=== PATIENT | male | born 1975 | race Caucasian/White ===

== ENCOUNTER 2017-12-19 16:05 | Observation (INO) ==
[2017-12-19] MEDS ORDERED: Ondansetron 4 MG/2 ML VIAL IVP ONE (16:18)
[2017-12-19] MEDS ORDERED: 0.9 % Sodium Chloride 1,000 ML IVC ONE ×2 (16:18→17:03)
--- NOTE | 2017-12-19 16:18 | Emergency Department Note ---
Disposition Clinical Impression: LIZZETH (acute kidney injury), Elevated troponin, Acute mesenteric adenitis, Abdominal pain, Diarrhea, Dehydration Disposition: Admitted As Inpatient Condition: Undetermined General Adult HPI - General Chief complaint: ED Extremity Problem,Nontraumatic Stated complaint: Bi-lateral leg numbness/pain Time Seen by Provider: 12/19/17 16:13 - History of Present Illness Pain Scale: 10 - Related Data Allergies Allergy/AdvReac Type Severity Reaction Status Date / Time No Known Allergies Allergy Verified 12/19/17 16:09 Course Vital Signs Temperature 97.5 F L 12/19/17 16:07 Pulse Rate 97 12/19/17 16:07 Respiratory Rate 16 12/19/17 16:07 Blood Pressure 90/55 12/19/17 16:07 O2 Sat by Pulse Oximetry 98 12/19/17 16:07 Temperature 98.4 F 12/19/17 20:59 Pulse Rate 77 12/19/17 20:59 Respiratory Rate 18 12/19/17 20:59 Blood Pressure 122/85 12/19/17 20:59 O2 Sat by Pulse Oximetry 96 12/19/17 20:59 Oxygen Delivery Oxygen Delivery Room Air Medical Decision Making - Lab Data Result diagrams: 12/19/17 16:29 12/19/17 16:29 Lab Results 12/19/17 12/19/17 12/19/17 Range/Units 16:29 16:29 16:29 WBC 12.0 H (4.3-11.1) K/mcL RBC 4.67 (4.19-5.50) M/mcL Hgb 14.4 (12.9-16.9) g/dL Hct 41.7 (37.5-50.1) % MCV 89.3 (83.0-100.0) fL MCH 30.8 (28.0-33.3) pg MCHC 34.5 (31.6-35.5) g/dL RDW 14.1 (11.5-14.5) % Plt Count 270 (140-400) K/mcL MPV 9.4 (9.4-12.4) fL Immature Gran % 0.5 (0-4) % Seg Neutrophils % 82.8 % Lymphocytes % 9.5 % Monocytes % 6.3 % Eosinophils % 0.6 % Basophils % 0.3 % Neutrophils # 10.0 H (1.6-8.9) K/mcL Lymphocytes # 1.1 (0.6-4.6) K/mcL Monocytes # 0.8 (0.0-1.3) K/mcL Eosinophils # 0.1 (0.0-0.6) K/mcL Basophils # 0.0 (0.0-0.2) K/mcL Sodium 137 (136-145) mEq/L Potassium 3.4 L (3.5-5.1) mEq/L Chloride 104 (98-107) mEq/L Carbon Dioxide 23 (23-29) mEq/L BUN 12 (6-20) mg/dL Creatinine 1.79 H (0.70-1.30) mg/dL Est GFR ( Amer) 50 L (> 60) Est GFR (Non-Af Amer) 42 L (> 60) BUN/Creatinine Ratio 7 (6-26) Glucose 134 H (70-105) mg/dL Calculated Osmolality 286 (280-300) Lactic Acid 3.0 H (0.5-2.2) mmol/L Calcium 10.0 (8.6-10.3) mg/dL Total Bilirubin 0.4 (0.3-1.0) mg/dL AST 15 (13-39) Units/L ALT 9 (7-52) Units/L Alkaline Phosphatase 107 H (34-104) Units/L Creatine Kinase 253 H (30-223) Units/L Troponin I 0.05 H* (< 0.04) ng/mL Serum Total Protein 8.1 (6.4-8.9) g/dL Albumin 4.8 (3.5-5.7) g/dL Globulin 3.3 (2.4-3.5) g/dL Albumin/Globulin Ratio 1.5 (1.1-2.2) Lipase 17 (11-82) Units/L 12/19/17 Range/Units 20:12 WBC (4.3-11.1) K/mcL RBC (4.19-5.50) M/mcL Hgb (12.9-16.9) g/dL Hct (37.5-50.1) % MCV (83.0-100.0) fL MCH (28.0-33.3) pg MCHC (31.6-35.5) g/dL RDW (11.5-14.5) % Plt Count (140-400) K/mcL MPV (9.4-12.4) fL Immature Gran % (0-4) % Seg Neutrophils % % Lymphocytes % % Monocytes % % Eosinophils % % Basophils % % Neutrophils # (1.6-8.9) K/mcL Lymphocytes # (0.6-4.6) K/mcL Monocytes # (0.0-1.3) K/mcL Eosinophils # (0.0-0.6) K/mcL Basophils # (0.0-0.2) K/mcL Sodium (136-145) mEq/L Potassium (3.5-5.1) mEq/L Chloride (98-107) mEq/L Carbon Dioxide (23-29) mEq/L BUN (6-20) mg/dL Creatinine (0.70-1.30) mg/dL Est GFR ( Amer) (> 60) Est GFR (Non-Af Amer) (> 60) BUN/Creatinine Ratio (6-26) Glucose (70-105) mg/dL Calculated Osmolality (280-300) Lactic Acid 1.0 (0.5-2.2) mmol/L Calcium (8.6-10.3) mg/dL Total Bilirubin (0.3-1.0) mg/dL AST (13-39) Units/L ALT (7-52) Units/L Alkaline Phosphatase (34-104) Units/L Creatine Kinase (30-223) Units/L Troponin I (< 0.04) ng/mL Serum Total Protein (6.4-8.9) g/dL Albumin (3.5-5.7) g/dL Globulin (2.4-3.5) g/dL Albumin/Globulin Ratio (1.1-2.2) Lipase (11-82) Units/L Attestation Statement - Attestation Attestation: I examined this patient and my medical decision-making was reviewed with the Resident Physician. I agree with the documented findings, disposition and treatment plan as described except to the extent set forth below. [id number] time provided Patient with a history of cerebral palsy presents with change in baseline mentation. I evaluated this patient in conjunction with the resident physician Dr. Espinoza. He had complained of numbness and tingling of his lower extremities bilaterally as well as diarrhea and abdominal pain.
--- NOTE | 2017-12-19 16:22 | Emergency Department Note ---
Disposition Clinical Impression: LIZZETH (acute kidney injury), Elevated troponin, Acute mesenteric adenitis, Dehydration Abdominal pain Qualifiers: Abdominal location: generalized Qualified Code(s): R10.84 - Generalized abdominal pain Diarrhea Qualifiers: Diarrhea type: unspecified type Qualified Code(s): R19.7 - Diarrhea, unspecified Disposition: Admitted As Inpatient Condition: Undetermined Referrals: NONE,PCP [Primary Care Provider] - Forms: ED Satisfaction Letter Time of Disposition: 18:43 General Adult HPI - General Chief complaint: ED Extremity Problem,Nontraumatic Stated complaint: Bi-lateral leg numbness/pain Time Seen by Provider: 12/19/17 16:13 Source: patient Mode of arrival: ambulatory Limitations: no limitations Nursing Notes Reviewed: Yes Vital Signs Reviewed: Yes - History of Present Illness HPI Narrative: 42-year-old male with history of cerebral palsy arrives to the emergency department after the patient was not acting right. The patient does not use air -conditioning in his house and states he has been sitting on his front porch old they have been out of the heat. Family member was with the patient and the patient noted to not be acting right. The patient was noted to be staring off despite following some commands. Patient was also noted to be diaphoretic and is complaining of bilateral lower extremity numb and weakness. The patient states that he has had a couple episodes of diarrhea as well. He is complaining of some lower abdominal pain. Denies any dysuria. The patient has some associated nausea without vomiting. He is very sweaty and diaphoretic on examination. He denies any other specific complaints at this time. The patient is alert and oriented and neurologically intact for baseline for the patient. Family members in the room state the patient is acting baseline at this time. He is noted to be mildly hypotensive with a systolic in the 90s and mildly tachycardic with a heart rate 103 on evaluation in the room. He denies any other complaints including difficulty breathing, chest pain. Pain Scale: 10 - Related Data Allergies Allergy/AdvReac Type Severity Reaction Status Date / Time No Known Allergies Allergy Verified 12/19/17 16:09 All systems ED: reviewed and negative except as stated. Constitutional: Reports: weakness. Denies: fever, chills ENT ED: Denies: dysphagia Cardiovascular: Denies: chest pain Respiratory: Denies: dyspnea Gastrointestinal: Reports: abdominal pain, nausea, diarrhea. Denies: vomiting, constipation, hematemesis, melena, hematochezia Genitourinary: Denies: urgency, dysuria, frequency, hematuria, discharge, testicular pain, testicular mass Musculoskeletal: Reports: myalgia. Denies: back pain, neck pain, arthralgia Integumentary: Denies: rash, lesions Neurological: Reports: weakness, numbness. Denies: headache, paresthesias, confusion, abnormal gait, vertigo Past Medical History - Past Medical History Attestation: Yes The following information was validated with the patient. Source: patient Medical history: Reports: seizures, other (cerebral palsy) Surgical history: Reports: non-contributory - Social History Smoking Status: Never smoker Alcohol use: Reports: none Drug use: Reports: none Physical Exam - General Limitations: no limitations General appearance: alert, in no apparent distress - Head Head exam: atraumatic, normocephalic, normal inspection - Eye Eye exam: Present: normal appearance, PERRL, EOMI - ENT ENT exam: normal exam, normal oropharynx, mucous membranes moist - Neck Neck exam: Present: normal inspection, full ROM, trachea midline - Chest Chest inspection: Present: normal inspection, symmetric chest wall rise - Respiratory Respiratory exam: Present: normal lung sounds bilaterally - Cardiovascular Cardiovascular exam: Present: normal rhythm, tachycardia, normal heart sounds - Abdominal Exam Abdominal exam: Present: soft, tenderness (Lower abdomen). Absent: distention, guarding, rebound, rigidity, Hurtado's sign, Rovsing's sign, hernia - Extremities Exam Extremities exam: Present: normal inspection, full ROM. Absent: tenderness, pedal edema - Neurological Exam Neurological exam: Present: alert, oriented X3, other (Patient has baseline spastic cerebral palsy.) - Expanded Neurological Exam Patient oriented to: Present: person, place, time Speech: Present: fluid speech Cranial nerves: EOM function (II, III, IV, ): Normal, facial sensation (V): Normal, facial palsy (VII): Normal Cerebellar function: wide-based gait (Baseline secondary to cerebral palsy) Motor strength - LUE: 4/5 Motor strength - RUE: 4/5 Motor strength - LLE: 4/5 Motor strength - RLE: 4/5 Sensory exam upper extremity: light touch: Normal Sensory exam lower extremity: light touch: Normal Coma Scale Eye Opening: Spontaneous Coma Scale Motor Response: Obeys Commands Coma Scale Verbal Response: Oriented Coma Scale Total: 15 - Skin Skin exam: Present: warm, dry, intact, normal color Course Vital Signs Temperature 97.5 F L 12/19/17 16:07 Pulse Rate 97 12/19/17 16:07 Respiratory Rate 16 12/19/17 16:07 Blood Pressure 90/55 12/19/17 16:07 O2 Sat by Pulse Oximetry 98 12/19/17 16:07 Temperature 97.5 F L 12/19/17 16:29 Pulse Rate 89 12/19/17 17:13 Respiratory Rate 18 12/19/17 17:13 Blood Pressure 92/59 12/19/17 17:13 O2 Sat by Pulse Oximetry 96 12/19/17 17:13 Oxygen Delivery Oxygen Delivery Room Air Medical Decision Making - MDM Narrative Medical decision making narrative: Patient's workup in the emergency department demonstrates an elevated troponin. No previous record of troponins in the past so we are unsure. A 0.05 the patient will likely need to trend the troponin as he is chest pain-free and without any shortness of breath without any EKG changes. The patient is noted to have an acute kidney injury because the patient has no previous record of kidney function. The patient was given 2 L of IV fluids here in the emergency department. CT of the patient's head demonstrates no acute process. CT of the patient's abdomen pelvis does reveal some free fluid within the pelvis and findings consistent with mesenteric right his. The appendix was not completely visually seen but there are no signs of secondary findings to the appendicitis. The patient was given 1 dose of Zosyn here in the emergency department. He states he is unable to urinate at this time. We will admit the patient to the hospital with IV hydration, trending of this troponins, and follow-up with the patient's abdominal findings. The patient's urinalysis will be followed up with upon admission. The patient and family were made aware that the patient will be admitted to the hospital this time. Accepted by Dr. Irwin. - Lab Data Lab results reviewed: Yes I reviewed the patient's lab results. Result diagrams: 12/19/17 16:29 12/19/17 16:29 Lab Results 12/19/17 12/19/17 12/19/17 Range/Units 16:29 16:29 16:29 WBC 12.0 H (4.3-11.1) K/mcL RBC 4.67 (4.19-5.50) M/mcL Hgb 14.4 (12.9-16.9) g/dL Hct 41.7 (37.5-50.1) % MCV 89.3 (83.0-100.0) fL MCH 30.8 (28.0-33.3) pg MCHC 34.5 (31.6-35.5) g/dL RDW 14.1 (11.5-14.5) % Plt Count 270 (140-400) K/mcL MPV 9.4 (9.4-12.4) fL Immature Gran % 0.5 (0-4) % Seg Neutrophils % 82.8 % Lymphocytes % 9.5 % Monocytes % 6.3 % Eosinophils % 0.6 % Basophils % 0.3 % Neutrophils # 10.0 H (1.6-8.9) K/mcL Lymphocytes # 1.1 (0.6-4.6) K/mcL Monocytes # 0.8 (0.0-1.3) K/mcL Eosinophils # 0.1 (0.0-0.6) K/mcL Basophils # 0.0 (0.0-0.2) K/mcL Sodium 137 (136-145) mEq/L Potassium 3.4 L (3.5-5.1) mEq/L Chloride 104 (98-107) mEq/L Carbon Dioxide 23 (23-29) mEq/L BUN 12 (6-20) mg/dL Creatinine 1.79 H (0.70-1.30) mg/dL Est GFR ( Amer) 50 L (> 60) Est GFR (Non-Af Amer) 42 L (> 60) BUN/Creatinine Ratio 7 (6-26) Glucose 134 H (70-105) mg/dL Calculated Osmolality 286 (280-300) Lactic Acid 3.0 H (0.5-2.2) mmol/L Calcium 10.0 (8.6-10.3) mg/dL Total Bilirubin 0.4 (0.3-1.0) mg/dL AST 15 (13-39) Units/L ALT 9 (7-52) Units/L Alkaline Phosphatase 107 H (34-104) Units/L Creatine Kinase 253 H (30-223) Units/L Troponin I 0.05 H* (< 0.04) ng/mL Serum Total Protein 8.1 (6.4-8.9) g/dL Albumin 4.8 (3.5-5.7) g/dL Globulin 3.3 (2.4-3.5) g/dL Albumin/Globulin Ratio 1.5 (1.1-2.2) Lipase 17 (11-82) Units/L - Radiology Data Radiology results reviewed: Yes I reviewed the patient's radiology results. Abdomen/Pelvis CT 12/19/17 16:18 IMPRESSION: There is a small amount of free pelvic fluid, which is unusual for this patient's age, and suggests intraperitoneal inflammation or infection. Having said that, a definite etiology that fluid is not detected. Other than some mild mesenteric fat stranding, no focal mural thickening of the large or small bowel is detected. Those portions of the appendix which are visualized are normal (although the appendiceal tip is admittedly not well visualized). At this point, close clinical, and if necessary imaging follow-up is recommended. Nonobstructing punctate nephrolithiasis bilaterally. D/ / Ji Pinto MD / Ji Pinto MD Interpreting Provider: Ji Pinto MD Head CT 12/19/17 16:18 IMPRESSION: No acute intracranial abnormality. Chronic sinus disease with near complete opacification of the right maxillary sinus. D/ / Johnnie Ward MD / Johnnie Ward MD Interpreting Provider: Johnnie Ward MD - EKG Data EKG #1 EKG attestation: Yes I reviewed and interpreted this EKG. EKG results narrative: Heart rate 101 beats for minute. Sinus tachycardia. No ST elevation or ST depression noted. No acute changes noted. No previous EKG on record.
[2017-12-19 16:46] LABS: Basophils % 0.3 %; Eosinophils # 0.1 K/mcL (0.0-0.6); Eosinophils % 0.6 %; Hematocrit 41.7 % (37.5-50.1); Hemoglobin 14.4 g/dL (12.9-16.9); Immature Granulocytes % 0.5 % (0-4); Lymphocytes # 1.1 K/mcL (0.6-4.6); Lymphocytes % 9.5 %; Mean Corpuscular HGB Conc 34.5 g/dL (31.6-35.5); Mean Corpuscular Hemoglobin 30.8 pg (28.0-33.3); Mean Corpuscular Volume 89.3 fL (83.0-100.0); Mean Platelet Volume 9.4 fL (9.4-12.4); Monocytes # 0.8 K/mcL (0.0-1.3); Monocytes % 6.3 %; Platelet Count 270 K/mcL (140-400); Red Blood Count 4.67 M/mcL (4.19-5.50); Red Cell Distribution Width 14.1 % (11.5-14.5); Segmented Neutrophils % 82.8 %
[2017-12-19 17:07] LABS: Albumin 4.8 g/dL (3.5-5.7); Albumin/Globulin Ratio 1.5 (1.1-2.2); Bilirubin,Total 0.4 mg/dL (0.3-1.0); Globulin 3.3 g/dL (2.4-3.5); Potassium 3.4 mEq/L (3.5-5.1); Total Protein 8.1 g/dL (6.4-8.9)
[2017-12-19 17:10] LABS: Troponin I 0.05 ng/mL (< 0.04)
[2017-12-19] MEDS ORDERED: Piperacillin/Tazobactam 3.375 GM in 0.9 % Sodium Chloride Mini Bag 100 ML IVPB ONE (18:32)
[2017-12-19] MEDS ORDERED: Naloxone 0.4 MG/ML INJ IVP PRN (21:12)
[2017-12-19] MEDS ORDERED: 0.9 % Sodium Chloride w KCl 20 MEQ/1,000 ML MLS IVC SCH (21:15)
--- NOTE | 2017-12-19 23:20 | Internal Med History&Physical ---
Date of Encounter: 12/19/17 Time of Encounter: 21:00 Internal Medicine - H&P: HPI Chief complaint: Altered mental status Admitted From: Home Plans for Post Hospital Care: Home History of present illness: Mr. Mccall is a 42 year old male. This patient has had underlying cerebral palsy. He needs by himself. He has not been feeling well for about 1 day. It is associated with her decreased intake of fluids and foods. He had a large watery bowel movement today morning. When he saw a family member visited him today morning he noticed the patient to have a few minutes lasting episode of staring down and not responding to questions. The patient got significantly better after receiving 2 bags of IV fluids in the emergency department. This patient was treated for seizures in the pastwas on Tegretol. He stopped taking treatments about [address] of the brain shows normal findings. CT of her abdomen/pelvis that shows mesenteric stranding suggestive diagnosis of acute mesenteritis. Creatinine is increased at 1.79. We do not have his baseline. Review of systems: All 14 organ systems were reviewed by me with the patient. Positive and pertinent negative findings are listed above. The rest of organ systems is negative. Physical Exam: Skin: Free of rash and discoloration. Musculoskeletal: He does have a grimacing of his face. He has contractions in the elbows. His hands are showing contractions, too. Eyes: Sclera is white. There is no discharge from eyes. ENMT: Oral/pharyngeal mucosa is normal in appearance. There is no discharge from nose or ears. Respiratory: Normal breath sounds with no crackles and wheezes bilaterally. CV: Heart is regular with no gallop or murmur. GI: Abdomen is flat and soft with no palpable mass or visceromegaly. : There is no tenderness in patient's flanks bilaterally. Neuro exam: He has good strength in upper and lower extremities. He has normal eye movements. Psychiatric: He has normal affect. His thought process is appropriate to the situation. A/P: Altered mental status secondary to dehydration/acute kidney injury. He has already 2 L of IV fluids. We will give him 1 L of extra. It will be with potassium chloride as he is mildly hypokalemic. He may have acute mesenteritis. This is why he has experienced a decreased intake of fluids/foods and one bout of watery diarrhea. We will keep him on IV Cipro. We will continue supportive treatments. The patient might have had an attack of her absence of seizure. It will be difficult to prove. I feel that it was her triggered by the events are mentioned by me above. I am not going to order a neurology consult/EEG at this time. Cerebral palsy. This problem is stable. Will continue supportive treatments. Past Med Surg Social Fam HX - Past Medical History Medical history: seizures, other Additional medical history: cerebral palsy Psychiatric history: no psych history - Past Surgical History Surgical History: non-contributory - Social History Smoking Status: Current every day smoker Packs per day: 1 Smokeless Tobacco Status: No Alcohol use: none Drug use: none Internal Medicine - H&P: Meds 3 Allergy/AdvReac Type Severity Reaction Status Date / Time No Known Allergies Allergy Verified 12/19/17 16:09 - Constitutional Vitals: Temp Pulse Resp BP Pulse Ox 98.4 F 77 18 122/85 96 12/19/17 20:59 12/19/17 20:59 12/19/17 20:59 12/19/17 20:59 12/19/17 20:59 Internal Med - H&P Results - Labs CBC & Chem 7: 12/19/17 16:29 12/19/17 16:29 - Assessment and plan (1) Altered mental status Current Visit: Yes Status: Acute Qualifiers: Altered mental status type: unspecified Qualified Code(s): R41.82 - Altered mental status, unspecified (2) LIZZETH (acute kidney injury) Current Visit: Yes Status: Acute (3) Acute mesenteric adenitis Current Visit: Yes Status: Acute (4) Cerebral palsy Current Visit: Yes Status: Chronic Qualifiers: Cerebral palsy type: other type Qualified Code(s): G80.8 - Other cerebral palsy - Time Spent With Patient Total time spent is greater than 50% in coordination of care (as documented) at patient's floor/unit and/or counseling patient: Greater than 35 minutes
[2017-12-20 04:04] LABS: Basophils # 0.1 K/mcL (0.0-0.2); Basophils % 0.7 %; Eosinophils # 0.2 K/mcL (0.0-0.6); Eosinophils % 3.2 %; Hematocrit 36.9 % (37.5-50.1); Immature Granulocytes % 0.3 % (0-4); Lymphocytes # 2.1 K/mcL (0.6-4.6); Lymphocytes % 28.1 %; Mean Corpuscular HGB Conc 34.7 g/dL (31.6-35.5); Mean Corpuscular Hemoglobin 31.2 pg (28.0-33.3); Mean Platelet Volume 9.3 fL (9.4-12.4); Monocytes # 0.8 K/mcL (0.0-1.3); Monocytes % 10.8 %; Neutrophils # 4.3 K/mcL (1.6-8.9); Platelet Count 214 K/mcL (140-400); Red Cell Distribution Width 14.1 % (11.5-14.5); Segmented Neutrophils % 56.9 %
[2017-12-20 04:06] LABS: Hemoglobin 12.8 g/dL (12.9-16.9)
[2017-12-20 04:22] LABS: BUN/Creatinine Ratio 13 (6-26); Blood Urea Nitrogen 12 mg/dL (6-20); Calcium 8.8 mg/dL (8.6-10.3); Carbon Dioxide 26 mEq/L (23-29); Chloride 107 mEq/L (98-107); Glucose 113 mg/dL (70-105); Magnesium 2.1 mg/dL (1.6-2.6); Osmolality,Calculated 289 (280-300); Potassium 3.4 mEq/L (3.5-5.1); Sodium 139 mEq/L (136-145); eGFR For Non-African Americans > 60 (> 60)
--- NOTE | 2017-12-20 14:15 | Internal Med Progress Note ---
Hospitalist Progress Note - Encounter Date of Encounter: 12/20/17 Time of Encounter: 14:12 - Subjective Interval History: He has no further staring spells. No obvious confusion per family. - Exam Vitals: Temp Pulse Resp BP Pulse Ox 97.0 F L 65 18 137/83 93 12/20/17 10:55 12/20/17 10:55 12/20/17 10:55 12/20/17 10:55 12/20/17 10:55 Exam: PHYSICAL EXAMINATION: GENERAL APPEARANCE: The patient is alert, oriented and in no acute distress. HEENT: Head is normocephalic. The sinuses are nontender. Pupils are equal and reactive. The nares are patent. Oropharynx clear without lesions. NECK: Supple without lymphadenopathy. HEART: Regular rate and rhythm. LUNGS: No crackles or wheezes are heard. ABDOMEN: Soft, nontender, nondistended with good bowel sounds heard. Inguinal area is normal. EXTREMITIES: Without cyanosis, clubbing or edema. NEUROLOGICAL: Gross nonfocal. SKIN: Warm and dry without any rash. - Assessment and Plan (1) LIZZETH (acute kidney injury) Current Visit: Yes Status: Resolved Assessment and Plan: likely due to dehydration, Cr improved with IVF. (2) Acute mesenteric adenitis Current Visit: Yes Status: Acute Assessment and Plan: CT abdomen via a small amount of ascites and a nonspecific fat stranding. Patient does reported one time of diarrhea yesterday. Abdominal physical exam benign. Continue IV Cipro. (3) Altered mental status Current Visit: Yes Status: Acute Assessment and Plan: Likely due to dehydration and the LIZZETH, mental status improved with IV fluid, plan to discharge home tomorrow. 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 DVT Prophylaxis: SCDs. - Time Spent with Patient Total time spent is greater than 50% in coordination of care (as documented) at patient's floor/unit and/or counseling patient: Greater than 35 minutes Plan of Care Discussed with: patient Internal Medicine: Result - Labs CBC & Chem 7: 12/20/17 03:43 12/20/17 03:43 Labs: Short CBC 12/20/17 Range/Units 03:43 WBC 7.5 (4.3-11.1) K/mcL Hgb 12.8 L D (12.9-16.9) g/dL Hct 36.9 L (37.5-50.1) % Plt Count 214 (140-400) K/mcL Neutrophils # 4.3 (1.6-8.9) K/mcL BMP 12/20/17 03:43 Sodium 139 Potassium 3.4 L Chloride 107 Carbon Dioxide 26 BUN 12 Creatinine 0.93 Glucose 113 H Calcium 8.8 Cardiac Enzymes 12/20/17 Range/Units 03:43 Troponin I 0.04 H* (< 0.04) ng/mL Consult Discharge Plan - Plan Referrals: NONE,PCP [Primary Care Provider] - (3) Altered mental status Qualifiers: Altered mental status type: unspecified Qualified Code(s): R41.82 - Altered mental status, unspecified (4) Cerebral palsy Qualifiers: Cerebral palsy type: other type Qualified Code(s): G80.8 - Other cerebral palsy
[2017-12-20] MEDS ORDERED: Melatonin 3 MG TABLET PO PRN (21:13)
[2017-12-21 03:58] LABS: Basophils % 0.5 %; Eosinophils # 0.6 K/mcL (0.0-0.6); Eosinophils % 7.1 %; Hematocrit 37.6 % (37.5-50.1); Hemoglobin 12.9 g/dL (12.9-16.9); Immature Granulocytes % 0.3 % (0-4); Lymphocytes # 2.2 K/mcL (0.6-4.6); Lymphocytes % 27.7 %; Mean Corpuscular HGB Conc 34.3 g/dL (31.6-35.5); Mean Corpuscular Hemoglobin 30.7 pg (28.0-33.3); Mean Corpuscular Volume 89.5 fL (83.0-100.0); Mean Platelet Volume 9.5 fL (9.4-12.4); Monocytes # 0.7 K/mcL (0.0-1.3); Monocytes % 8.9 %; Neutrophils # 4.3 K/mcL (1.6-8.9); Platelet Count 221 K/mcL (140-400); Red Cell Distribution Width 14.3 % (11.5-14.5); Segmented Neutrophils % 55.5 %
[2017-12-21 04:16] LABS: BUN/Creatinine Ratio 18 (6-26); Blood Urea Nitrogen 11 mg/dL (6-20); Calcium 9.1 mg/dL (8.6-10.3); Carbon Dioxide 27 mEq/L (23-29); Chloride 106 mEq/L (98-107); Glucose 98 mg/dL (70-105); Osmolality,Calculated 285 (280-300); Potassium 3.6 mEq/L (3.5-5.1); Sodium 138 mEq/L (136-145); eGFR For Non-African Americans > 60 (> 60)
[2017-12-21 06:47] VITALS: BP 140/87
--- NOTE | 2017-12-21 09:03 | Electrocardiograph Report ---
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
--- NOTE | 2017-12-21 10:39 | Discharge Summary ---
- NOTES TO OUTPATIENT PROVIDER Notes to Outpatient Provider: f/u with PCP within a week. Date of Encounter: 12/21/17 Time of Encounter: 10:36 - Discharge Diagnosis (1) LIZZETH (acute kidney injury) Priority: Primary Status: Resolved Assessment and Plan: likely due to dehydration, Cr improved and now back to baseline with IVF. (2) Acute mesenteric adenitis Priority: Primary Status: Acute Assessment and Plan: CT abdomen via a small amount of ascites and a nonspecific fat stranding. Patient does reported one time of diarrhea yesterday. Abdominal physical exam benign. received 2 days of IV Cipro, continue oral cipro for 5 more days after discharge. (3) Altered mental status Priority: Primary Status: Acute Assessment and Plan: Likely due to dehydration and the LIZZETH, mental status improved with IV fluid. 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 Qualifiers: Cerebral palsy type: other type Qualified Code(s): G80.8 - Other cerebral palsy Hospital course: Mr. Mccall is a 42 year old male with history of cerebral palsy and seizure disorder presented with mental status change and generalized weakness for 1 day. It is associated with decreased intake of fluids and foods. He had a large watery bowel movement the morning of admission. When a family member visited him she noticed the patient to have a few minutes lasting episode of staring down and not responding to questions. He lives in an apartment without air conditioning. He also had a lot of outdoor activities recently. At the ED , patient seems dehydrated and labs showed acute kidney injury. CT abdomen revealed a small amount of ascites and a nonspecific fat stranding, suspicious for mesenteric adenitis. The patient got significantly better after receiving 2 bags of IV fluids in the emergency department. He was admitted as observation and IV fluid continued. Patient mental status improved back to baseline, acute kidney injury resolved. He will be discharged home today. He will continue to take oral Cipro for 5 more days and follow-up with PCP within 1 -2 weeks. Discharge discussed with: patient, family Time spent discussing smoking cessation with patient: more than 10 minutes - Time Spent with Patient Total time spent providing and/or coordinating discharge services: Greater than 30 minutes - Discharge Medications Prescriptions: Ciprofloxacin [Cipro] 500 mg PO BID #10 tablet Home Medications: Ciprofloxacin [Cipro] 500 mg PO BID #10 tablet 12/21/17 [Rx] Allergies/Adverse Reactions: 3 Allergy/AdvReac Type Severity Reaction Status Date / Time No Known Allergies Allergy Verified 12/19/17 16:09 Date of admission: 12/19/17 20:30 Primary care physician: PCP NONE Anticipated date of discharge: 12/21/17 - Constitutional Vitals: Temp Pulse Resp BP Pulse Ox 97.9 F 59 16 140/87 94 12/21/17 06:46 12/21/17 06:46 12/21/17 06:46 12/21/17 06:46 12/21/17 06:46 General appearance: Present: A&O X 3, answers questions appropriately Exam: PHYSICAL EXAMINATION: GENERAL APPEARANCE: The patient is alert, oriented and in no acute distress. HEENT: Head is normocephalic. The sinuses are nontender. Pupils are equal and reactive. The nares are patent. Oropharynx clear without lesions. NECK: Supple without lymphadenopathy. HEART: Regular rate and rhythm. LUNGS: No crackles or wheezes are heard. ABDOMEN: Soft, nontender, nondistended with good bowel sounds heard. Inguinal area is normal. EXTREMITIES: Without cyanosis, clubbing or edema. NEUROLOGICAL: Gross nonfocal. SKIN: Warm and dry without any rash. - Patient Status Disposition: Home, Self-Care Condition: Fair Functional capacity at discharge: independent ambulation Overall status at discharge: patient is back to baseline - Discharge Instructions Instructions: Ciprofloxacin (By mouth), Acute Kidney Injury (DC) Follow Up With: NONE,PCP [Primary Care Provider] - (patient refused for me to set them up with a pcp at this time said he doesn't go to the dr ) - Diet and Activity Activity: increase activity as tolerated Diet: advance to your usual diet
== END 2017-12-21 11:54 | disposition home or self-care (01) ==
LOC: 2NENU 16:05 → EMEROO 16:05 → 2NENU 20:46
PROVIDERS: ADMIT Internal Medicine; ATTEND Internal Medicine